=== PATIENT | male | born 1935 | race Caucasian/White ===

== ENCOUNTER 2020-08-12 15:44 | Emergency (ER) | payer MEDICARE, OTHER ==
--- NOTE | 2020-08-12 16:06 | EDM.PDOC ---
ED HPI GENERAL MEDICAL PROBLEM - General Chief Complaint: Cardiovascular Problem Stated Complaint: PACE MAKER BEEPING Time Seen by Provider: 08/12/20 16:06 Source of Information: Reports: Patient, RN, RN Notes Reviewed History Limitations: Reports: No Limitations - History of Present Illness INITIAL COMMENTS - FREE TEXT/NARRATIVE: Patient is an 84-year-old male who presents to the ER for "checkup". 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 Patient states no symptoms, denies chest pains or shortness of breath, or any recent illness. Patient states he did get very anxious after he heard the beeping, and states he was somewhat dizzy. Patient states dizziness has subsided, and denies any complaints of at this time. 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 Patient states he has never followed up with cardiology. States he has "something" next to his bed for his pacemaker which he does not know what it is and has never used it. Onset: Today, Sudden ED ROS GENERAL - Review of Systems Review Of Systems: Comprehensive ROS is negative, except as noted in HPI. ED EXAM, GENERAL - Physical Exam Exam: See Below Exam Limited By: Language Barrier General Appearance: Alert, WD/WN, No Apparent Distress Eye Exam: Bilateral Eye: EOMI, Normal Inspection Ears: Normal External Exam, Hearing Loss (hearing aids) Nose: Normal Inspection Throat/Mouth: Normal Inspection, Normal Voice, No Airway Compromise Head: Atraumatic, Normocephalic Neck: Normal Inspection, Supple, Non-Tender, Full Range of Motion Respiratory/Chest: No Respiratory Distress, Lungs Clear, Normal Breath Sounds, No Accessory Muscle Use, Chest Non-Tender Cardiovascular: Normal Peripheral Pulses, Regular Rate, Rhythm, No Edema, No Gallop, No JVD, No Murmur, No Rub Peripheral Pulses: 2+: Radial (L), Radial (R) GI/Abdominal: Normal Bowel Sounds, Soft, Non-Tender (Male) Exam: Deferred Rectal (Males) Exam: Deferred Back Exam: Normal Inspection, Full Range of Motion, NT Extremities: Normal Inspection, Normal Range of Motion, Non-Tender, No Pedal Edema, Normal Capillary Refill Neurological: Alert, Oriented, CN II-XII Intact, Normal Cognition, Normal Gait, Normal Reflexes, No Motor/Sensory Deficits Psychiatric: Normal Affect, Normal Mood, Anxious Skin Exam: Warm, Dry, Intact, Normal Color, No Rash Lymphatic: No Adenopathy #1 Interpretation EKG Date: 08/12/20 Time: 16:24 Rhythm: Other (ventericular paced rhythm) Rate (Beats/Min): 93 Comparison: NA - No Prior EKG Course - Vital Signs Last Recorded V/S: Last Vital Signs Temp 97.3 F 08/12/20 15:59 Pulse 95 08/12/20 15:59 Resp 18 08/12/20 15:59 BP 185/91 H 08/12/20 15:59 Pulse Ox 99 08/12/20 15:59 - Re-Assessments/Exams Free Text/Narrative Re-Assessment/Exam: 08/12/20 16:45 Patient agreed to having EKG done, declining the need for labs at this time. Was explained to the patient that he presented to the ER to "have his heart checked out". He states another time would be much better for him. He states he will follow up with his primary doctor in [place] and decide where he wants to follow-up with cardiology, as he was very unhappy with his cardiology in [place]. Patient agreed to sign AMA as he is declining further work-up at this time. Departure - Departure Time of Disposition: 16:46 Disposition: Against Medical Advice 07 Reason for Transfer *Q: Other Condition: Good Clinical Impression: Physically well but worried Forms: ED Department Discharge Additional Instructions: Follow-up with your primary care provider in [place] Follow-up with cardiology for checkup on your pacemaker Return to the ER if you have any worsening of symptoms, chest pain, shortness of breath Sepsis Event Note (ED) - Evaluation Sepsis Screening Result: No Definite Risk - Focused Exam Vital Signs: Vital Signs Temp Pulse Resp BP Pulse Ox 08/12/20 15:59 97.3 F 95 18 185/91 H 99
== END 2020-08-12 16:50 | disposition left against medical advice (07) ==
LOC: DL.ED 15:44
DX: Z71.1 Person with feared health complaint in whom no diagnosis is made (principal); Z45.010 Encounter for checking and testing of cardiac pacemaker pulse generator [battery]
CPT/HCPCS: 93010; 99283; 99284-25